=== PATIENT | female | born 1980 | race Hispanic/Latino ===

== ENCOUNTER 2016-12-07 19:33 | Emergency (ER) | payer SELFPAY ==
[2016-12-07 21:16] LABS: Bacteria,Urine 2+ /HPF (Negative); Bilirubin,Urine NEG (Negative); Blood,Urine MOD (Negative); Ketones,Urine NEG (Negative); Leukocyte Esterase,Urine LG (Negative); Mucus,Urine 2+ /HPF; Nitrite,Urine POS (Negative); Sperm,Urine FEW /HPF (NP); Urobilinogen,Urine < 2.0 mg/dL (<2.0)
[2016-12-07 21:20] LABS: WBC,Urine > 182.0 /HPF (0.0-6.0)
--- NOTE | 2016-12-08 01:31 | Emergency Department Report ---
ED Female HPI - General Chief complaint: Urogenital-Female Stated complaint: VAGINAL BLEEDING Time Seen by Provider: 12/07/16 23:55 Source: patient Mode of arrival: Ambulatory Limitations: No Limitations - History of Present Illness Initial comments: This is a 36-year-old female nontoxic, well nourished in appearance, no acute signs of distress presents to the ED complaining of foul odor vaginal discharge 3 weeks. Patient states she has history of bites or vaginosis and stated this at the same similar symptoms that she is currently having. Patient also states she has dysuria and polyuria. She denies hematuria. Denies back pain. Denies chest pain, shortness of breath, nausea, vomiting, abdominal pain, pelvic pain, fever, chills, headache, numbness or tingling. Patient states she has unprotected sex with a known sexual partner. Patient denies any concerns of STD exposure. Patient denies any drug allergies or past medical history. Patient describes vaginal discharge as yellow color with foul odor. MD Complaint: vaginal discharge, dysuria -: Gradual, week(s) (3) Severity scale (0 -10): 0 Consistency: constant Improves with: none Worsens with: none Are you Now?: No Last Menstrual Period: 11/29/16 EDC: 09/05/17 Associated Symptoms: vaginal discharge, dysuria. denies: vaginal bleeding, abdominal pain, nausea/vomiting, fever/chills, headaches, loss of appetite, hematuria, rash, seizure, shortness of breath, syncope, weakness - Related Data Sexually active: Yes Previous Rx's Medication Instructions Recorded Last Taken Type HYDROcodone/APAP 5-325 [[place] 1 each PO Q6HR PRN #30 tablet 04/04/15 Unknown Rx 5/325] Ibuprofen [Motrin] 800 mg PO Q8HR PRN #30 tablet 04/04/15 Unknown Rx Sulfamethoxazole/Trimethoprim 1 each PO BID #14 tablet 12/08/16 Unknown Rx [Bactrim DS TAB] Allergies Allergy/AdvReac Type Severity Reaction Status Date / Time No Known Allergies Allergy Verified 04/04/15 05:26 ED Review of Systems ROS: Stated complaint: VAGINAL BLEEDING Other details as noted in HPI Constitutional: denies: chills, fever Eyes: denies: eye pain, eye discharge, vision change ENT: denies: ear pain, throat pain Respiratory: denies: cough, shortness of breath, wheezing Cardiovascular: denies: chest pain, palpitations Endocrine: no symptoms reported Gastrointestinal: denies: abdominal pain, nausea, diarrhea Genitourinary: denies: urgency, dysuria, discharge Musculoskeletal: denies: back pain, joint swelling, arthralgia Skin: denies: rash, lesions Neurological: denies: headache, weakness, paresthesias Psychiatric: denies: anxiety, depression Hematological/Lymphatic: denies: easy bleeding, easy bruising ED Past Medical Hx - Past Medical History Hx Hypertension: No Hx Liver Disease: No Hx Renal Disease: No Hx Seizures: No Hx Asthma: No - Social History Smoking Status: Never Smoker Substance Use Type: Cocaine, Methamphetamines - Medications Home Medications: Home Medications Medication Instructions Recorded Confirmed Last Taken Type HYDROcodone/APAP 5-325 [[place] 1 each PO Q6HR PRN #30 tablet 04/04/15 Unknown Rx 5/325] Ibuprofen [Motrin] 800 mg PO Q8HR PRN #30 tablet 04/04/15 Unknown Rx Sulfamethoxazole/Trimethoprim 1 each PO BID #14 tablet 12/08/16 Unknown Rx [Bactrim DS TAB] ED Physical Exam - General Limitations: No Limitations General appearance: alert, in no apparent distress - Head Head exam: Present: atraumatic, normocephalic, normal inspection - Eye Eye exam: Present: normal appearance, PERRL, EOMI. Absent: scleral icterus, conjunctival injection, nystagmus, periorbital swelling, periorbital tenderness Pupils: Present: normal accommodation - ENT ENT exam: Present: normal exam, normal orophraynx, mucous membranes moist, TM's normal bilaterally, normal external ear exam - Neck Neck exam: Present: normal inspection, full ROM. Absent: tenderness, meningismus, lymphadenopathy, thyromegaly - Respiratory Respiratory exam: Present: normal lung sounds bilaterally. Absent: respiratory distress, wheezes, rales, rhonchi, stridor, chest wall tenderness, accessory muscle use, decreased breath sounds, prolonged expiratory - Cardiovascular Cardiovascular Exam: Present: regular rate, normal rhythm, normal heart sounds. Absent: bradycardia, tachycardia, irregular rhythm, systolic murmur, diastolic murmur, rubs, gallop - GI/Abdominal GI/Abdominal exam: Present: soft, normal bowel sounds. Absent: distended, tenderness, guarding, rebound, rigid, diminished bowel sounds - Rectal Rectal exam: Present: deferred - External exam: Present: normal external exam, other (front end mechanic Julissa [place] present during exam). Absent: erythema, swelling, lesions, lacerations, ecchymosis, bleeding Speculum exam: Present: normal speculum exam, vaginal discharge, other ( front end mechanic Julissa [place] present during exam). Absent: erythema, cervical discharge, vaginal bleeding, foreign body, tissue, laceration Bi-manual exam: Present: normal bi-manual exam, other (front end mechanic Julissa [place] present during exam). Absent: cervical motion tendernes, adnexal tenderness, adnexal mass, uterine enlargement, uterine tenderness - Extremities Exam Extremities exam: Present: normal inspection, full ROM, normal capillary refill. Absent: tenderness, pedal edema, joint swelling, calf tenderness - Back Exam Back exam: Present: normal inspection, full ROM. Absent: tenderness, CVA tenderness (R), CVA tenderness (L), muscle spasm, paraspinal tenderness, vertebral tenderness, rash noted - Neurological Exam Neurological exam: Present: alert, oriented X3, CN II-XII intact, normal gait, reflexes normal - Psychiatric Psychiatric exam: Present: normal affect, normal mood - Skin Skin exam: Present: warm, dry, intact, normal color. Absent: rash ED Course Vital Signs 12/07/16 19:45 Temperature 97.9 F Pulse Rate 82 Respiratory 16 Rate Blood Pressure 98/66 O2 Sat by Pulse 98 Oximetry - Reevaluation(s) Reevaluation #1: 12/08/16 01:30 PAtient is speaking in full sentences with no signs of distress noted. ED Medical Decision Making - Medical Decision Making This is a 36-year-old female that presents with UTI. Wet prep and gonorrhea Chlamydia has been obtained. Wet prep is negative for Trichomonas, BV or yeast infection. Patient stated she is not concerned about gonorrhea chlamydia and will be treated empirically. She received Bactrim at the time of discharge. Patient was instructed to follow-up with a primary care doctor in 3-5 days or if symptoms worsen continue her to the emergency room as soon as possible. Patient was instructed to return in 3-5 days at medical records to obtain her results of gonorrhea and chlamydia. At time time of discharge, the patient does not seem toxic or ill in appearance. No acute signs of distress noted. Patient agrees to discharge treatment plan of care. No further questions noted by the patient. Critical care attestation.: If time is entered above; I have spent that time in minutes in the direct care of this critically ill patient, excluding procedure time. ED Disposition Clinical Impression: UTI (urinary tract infection) Qualifiers: Urinary tract infection type: site unspecified Hematuria presence: without hematuria Qualified Code(s): N39.0 - Urinary tract infection, site not specified Disposition: TO HOME OR SELFCARE Is pt being admited?: No Does the pt Need Aspirin: No Condition: Stable Instructions: Urinary Tract Infection in Women (ED), Sulfamethoxazole/ Trimethoprim (By mouth) Additional Instructions: Return in 3-5 days to the medical records to obtain results of gonorrhea and chlamydia. Follow-up with a primary care doctor in 3-5 days or if symptoms worsen continue her to the emergency room as soon as possible. Prescriptions: Sulfamethoxazole/Trimethoprim [Bactrim DS TAB] 1 each PO BID #14 tablet Referrals: PRIMARY MD KING [Primary Care Provider] - 3-5 Days LIO COTTO MD [Staff Physician] - 3-5 Days [facility] [Outside] - 3-5 Days [facility] [Outside] - 3-5 Days Forms: Work/School Release Form(ED)
[2016-12-08 02:48] VITALS: BP 109/76
== END 2016-12-08 02:47 | disposition home or self-care (01) ==
LOC: ED 19:33
DX: N39.0 Urinary tract infection, site not specified (principal); F14.10 Cocaine abuse, uncomplicated; F15.10 Other stimulant abuse, uncomplicated
CPT/HCPCS: 36415; 81001; 84703; 87210; 87591; 99284

== ENCOUNTER 2018-11-20 17:53 | Emergency (ER) | payer SELFPAY ==
--- NOTE | 2018-11-20 18:21 | Event Note ---
ED Screening Note ED Screening Note: vill appearing female pale/jaundice hx hep A admits to polypharm today This initial assessment/diagnostic orders/clinical plan/treatment(s) is/are subject to change based on patients health status, clinical progression and re- assessment by fellow clinical providers in the ED. Further treatment and workup at subsequent clinical providers discretion. Patient/guardian urged not to elope from the ED as their condition may be serious if not clinically assessed and managed. Initial orders include: labs ua
[2018-11-20 18:59] LABS: Hematocrit 28.4 % (30.3-42.9); Hemoglobin 10.1 gm/dl (10.1-14.3); Mean Corpuscular HGB Conc 36 % (30-34); Mean Corpuscular Volume 97 fl (79-97); Platelet Count 252 K/mm3 (140-440); Red Blood Count 2.92 M/mm3 (3.65-5.03); Red Cell Distribution Width 15.9 % (13.2-15.2)
[2018-11-20 19:23] LABS: Alanine Aminotransferase 39 units/L (7-56); Albumin 4.7 g/dL (3.9-5); BUN/Creatinine Ratio 13; Blood Urea Nitrogen 15 mg/dL (7-17); Calcium 9.4 mg/dL (8.4-10.2); Hemolysis Index 3
[2018-11-20 19:27] LABS: Bilirubin,Direct < 0.2 mg/dL (0-0.2)
--- NOTE | 2018-11-21 00:04 | Emergency Department Report ---
ED Female HPI - General Chief complaint: Vaginal Bleeding Stated complaint: VAGINAL BLEEDING Time Seen by Provider: 11/20/18 18:19 Source: patient Mode of arrival: Ambulatory Limitations: No Limitations - History of Present Illness Initial comments: 38-year-old female with a past medical history of hepatitis A and polysubstance abuse (as per medical record) presents to the hospital with complains of heavy vaginal bleeding 4 days. Patient states this is the typical time of her menstrual cycle and it it typically lasts 7 days. She states she is bleeding heavier than normal and using 2 pads at the time still soaking through. Patient has some mild suprapubic abdominal pain and was for the lightheaded and dizzy and therefore she came to the hospital. She denies possibility that she can be as she was incarcerated but has a history of ectopic in the past. Patient now states that the bleeding has decreased, has suprapubic abdominal pain has resolved, and she reports feeling better. - Related Data Previous Rx's Medication Instructions Recorded Last Taken Type HYDROcodone/APAP 5-325 [[place] 1 each PO Q6HR PRN #30 tablet 04/04/15 Unknown Rx 5/325] Sulfamethoxazole/Trimethoprim 1 each PO BID #14 tablet 12/08/16 Unknown Rx [Bactrim DS TAB] Ferrous Sulfate [Iron 325 MG] 325 mg PO DAILY #7 tablet 11/21/18 Unknown Rx Ibuprofen [Motrin 800 MG tab] 800 mg PO Q8HR PRN #30 tablet 11/21/18 Unknown Rx Allergies Allergy/AdvReac Type Severity Reaction Status Date / Time No Known Allergies Allergy Verified 04/04/15 05:26 ED Review of Systems ROS: Stated complaint: VAGINAL BLEEDING Other details as noted in HPI Comment: All other systems reviewed and negative ED Past Medical Hx - Past Medical History Previous Medical History?: Yes Hx Hypertension: No Hx Liver Disease: No Hx Renal Disease: No Hx Seizures: No Hx Asthma: No Additional medical history: CARDIAC ARREST, HEPATITIS A AT AGE 16 - Surgical History Past Surgical History?: Yes Additional Surgical History: ECTOPIC - Social History Smoking Status: Current Every Day Smoker Substance Use Type: Cocaine, Marijuana, Methamphetamines, Other - Medications Home Medications: Home Medications Medication Instructions Recorded Confirmed Last Taken Type HYDROcodone/APAP 5-325 [[place] 1 each PO Q6HR PRN #30 tablet 01/08/16 Unknown Rx 5/325] Sulfamethoxazole/Trimethoprim 1 each PO BID #14 tablet 12/08/16 Unknown Rx [Bactrim DS TAB] Ferrous Sulfate [Iron 325 MG] 325 mg PO DAILY #7 tablet 11/21/18 Unknown Rx Ibuprofen [Motrin 800 MG tab] 800 mg PO Q8HR PRN #30 tablet 11/21/18 Unknown Rx ED Physical Exam - General Limitations: No Limitations - Other Other exam information: General: No acute distress Head: Atraumatic Eyes: Normal appearance, Pupils equal and reactive to light, extraocular movements intact ENT: Normal oropharynx Neck: Normal appearance, no posterior or midline tenderness, no meningismus Chest: Clear to auscultation bilaterally, no wheezes, rales, or crackles CV: Regular rate and rhythm Abdomen: soft, normal bowel sounds, nontender, nondistended, no rebound or guarding Back: Nontender Extremity: Normal inspection, full range of motion, nontender Neuro: Alert and oriented 3, speech clear, no gross motor or sensory deficit Skin: No rash, redness, warmth ED Course Vital Signs 11/20/18 11/20/18 11/20/18 18:18 23:06 23:08 Temperature 97.5 F L Pulse Rate 59 L 58 L Respiratory 16 18 18 Rate Blood Pressure 109/80 Blood Pressure 140/87 [Right] O2 Sat by Pulse 97 100 Oximetry ED Medical Decision Making - Lab Data Result diagrams: 11/20/18 18:27 11/20/18 18:27 Lab Results 11/20/18 11/20/18 11/20/18 Range/Units 18:27 18:27 23:05 WBC 4.3 L (4.5-11.0) K/mm3 RBC 2.92 L (3.65-5.03) M/mm3 Hgb 10.1 (10.1-14.3) gm/dl Hct 28.4 L (30.3-42.9) % MCV 97 (79-97) fl MCH 35 H (28-32) pg MCHC 36 H (30-34) % RDW 15.9 H (13.2-15.2) % Plt Count 252 (140-440) K/mm3 Sodium 137 (137-145) mmol/L Potassium 3.7 (3.6-5.0) mmol/L Chloride 96.3 L (98-107) mmol/L Carbon Dioxide 26 (22-30) mmol/L Anion Gap 18 mmol/L BUN 15 (7-17) mg/dL Creatinine 1.2 (0.7-1.2) mg/dL Estimated GFR 50 ml/min BUN/Creatinine Ratio 13 % Glucose 72 (65-100) mg/dL Calcium 9.4 (8.4-10.2) mg/dL Total Bilirubin 0.60 (0.1-1.2) mg/dL Direct Bilirubin < 0.2 (0-0.2) mg/dL Indirect Bilirubin 0.4 mg/dL AST 56 H (5-40) units/L ALT 39 (7-56) units/L Alkaline Phosphatase 53 (35-129) units/L Total Protein 8.1 (6.3-8.2) g/dL Albumin 4.7 (3.9-5) g/dL Albumin/Globulin Ratio 1.4 % Lipase 23 (13-60) units/L HCG, Quant < 2 (0-4) mIU/mL - Medical Decision Making Patient reports bleeding has decreased Normal vitals and H&H negative Patient will be discharged Patient be advised to follow-up with the health clinic and DIRECTOR HRIS for further concerns about HIV - Differential Diagnosis menorrhagia, fibroids, anemia, ectopic , miscarriage Critical Care Time: No Critical care attestation.: If time is entered above; I have spent that time in minutes in the direct care of this critically ill patient, excluding procedure time. ED Disposition Clinical Impression: Menorrhagia Disposition: [id number] TO HOME OR SELFCARE Is pt being admited?: No Condition: Stable Instructions: Menorrhagia (ED) Additional Instructions: Take the medication as prescribed. Follow-up with your doctor or the doctor/clinic provided. Return is symptoms worsen as indicated by your dischar ge instructions. Prescriptions: Ferrous Sulfate [Iron 325 MG] 325 mg PO DAILY #7 tablet Ibuprofen [Motrin 800 MG tab] 800 mg PO Q8HR PRN #30 tablet PRN Reason: Moder Pain Unrelieved By [place] Referrals: PRIMARY CARE, [Primary Care Provider] - 3-5 Days PIPER HUI MD [Staff Physician] - 3-5 Days (DIRECTOR HRIS) [facility] [Outside] - 3-5 Days (For HIV and STD testing) Time of Disposition: 00:00
[2018-11-21 00:56] VITALS: BP 135/84
== END 2018-11-21 00:55 | disposition home or self-care (01) ==
LOC: ED 17:53
DX: N92.0 Excessive and frequent menstruation with regular cycle (principal); B15.9 Hepatitis A without hepatic coma; F17.200 Nicotine dependence, unspecified, uncomplicated; F12.10 Cannabis abuse, uncomplicated; F15.10 Other stimulant abuse, uncomplicated; Z79.899 Other long term (current) drug therapy
CPT/HCPCS: 36415; 80053; 80076; 83690; 84702; 85027